=== PATIENT | female | born 1970 | race Caucasian/White ===

== ENCOUNTER 2018-11-08 15:15 | Emergency (ER) | payer OTHER ==
[~2018-11-08] VITALS: Ht 170.2 cm; Wt 136.1 kg
[2018-11-08 15:37] VITALS: BP_SYST 130
[2018-11-08] MEDS ORDERED: KETOROLAC TROMETHAMINE 60 MG/2 ML VIAL IM ONE (16:00)
[2018-11-08] MEDS ORDERED: ONDANSETRON 4 MG ODT TAB PO ONE (16:15)
[2018-11-08] MEDS ORDERED: MORPHINE SULFATE 10 MG/ML VIAL IM ONE ×2 (16:15→19:15)
[2018-11-08 22:10] VITALS: BP_SYST 130
== END 2018-11-08 22:10 | disposition home or self-care (01) ==
LOC: SED 15:15
DX: S33.5XXA Sprain of ligaments of lumbar spine, initial encounter (principal); S73.101A Unspecified sprain of right hip, initial encounter; S73.102A Unspecified sprain of left hip, initial encounter; S83.91XA Sprain of unspecified site of right knee, initial encounter; S83.92XA Sprain of unspecified site of left knee, initial encounter; S63.501A Unspecified sprain of right wrist, initial encounter; S63.502A Unspecified sprain of left wrist, initial encounter; R03.0 Elevated blood-pressure reading, without diagnosis of hypertension; Z88.5 Allergy status to narcotic agent; Z88.8 Allergy status to other drugs, medicaments and biological substances; W01.0XXA Fall on same level from slipping, tripping and stumbling without subsequent striking against object, initial encounter; Y93.89 Activity, other specified; Y92.89 Other specified places as the place of occurrence of the external cause; Y99.8 Other external cause status
CPT/HCPCS: 72131; 72192; 73100; 73700; 96372; 99284; J2270; Q0162; J1885

== ENCOUNTER 2021-12-17 05:24 | Observation (INO) | payer BC ==
[~2021-12-17] VITALS: Ht 170.2 cm; Wt 63.3 kg
[~2021-12-17 05:24] MED LIST: ALPR0.25 PO; APIX5TAB4 PO; DULO60CA42 PO; HYDR25TA4 PO; LAM25 PO; LEVO150T PO; METF-518 PO; NEU300 PO; QUET300T2 PO; SUCR1TAB78 PO; TRAZ300T2 PO; ZAN4 PO
[2021-12-17 05:27] VITALS: BP_SYST 133
--- NOTE | 2021-12-17 05:27 | NUR ---
Placed in room 5 . Placed on night monitor, blood pressure machine and pulse oximeter. To gown for exam. Side rails up.
--- NOTE | 2021-12-17 05:54 | NUR ---
Xray performed at the bedside.Pt tolerated well,
--- NOTE | 2021-12-17 06:09 | NUR ---
LYNN Graff at bedside examining patient.
[2021-12-17 06:17] LABS: BASOPHILS # (AUTO) 0.1 K/uL (0.0-0.2); BASOPHILS % (AUTO) 0.8 % (0.0-2.0); EOSINOPHILS # (AUTO) 0.2 K/uL (0.0-0.4); HEMOGLOBIN 10.4 g/dL (12.0-16.0); RED CELL DISTRIBUTION WIDTH 18.1 % (9.0-15.0)
[2021-12-17 06:24] LABS: EOSINOPHILS % (AUTO) 1.3 % (0.0-4.0); HEMATOCRIT 32.7 % (36-48); LYMPHOCYTES # (AUTO) 2.9 K/uL (1.0-5.5); LYMPHOCYTES % (AUTO) 22.3 % (20.5-51.5); MEAN CORPUSCULAR HEMOGLOBIN 22 pg (27-31); MEAN CORPUSCULAR HGB CONC 32 % (32-36); MEAN CORPUSCULAR VOLUME 69 fL (79.0-98.0); MONOCYTES # (AUTO) 0.7 K/uL (0.0-1.0); MONOCYTES % (AUTO) 5.2 % (1.7-9.3); NEUTROPHILS % (AUTO) 70.4 % (40.0-70.0); PLATELET COUNT (AUTO) 300 K/uL (130-430); RED BLOOD CELL COUNT(AUTO) 4.71 MIL/uL (4.2-6.2); WHITE BLOOD COUNT (AUTO) 12.8 K/uL (4.8-10.8)
[2021-12-17 06:27] LABS: ANION GAP 10 (5-15); CALCIUM 9.1 mg/dL (8.4-11.0); CHLORIDE 102 mmol/L (98-107); CREATININE 0.79 mg/dL (0.55-1.30); GLUCOSE 184 mg/dL (70-99); POTASSIUM 3.4 mmol/L (3.5-5.1); SODIUM SERUM 139 mmol/L (136-145); UREA NITROGEN, BLOOD 23 mg/dL (8-21)
[2021-12-17] MEDS ORDERED: ONDANSETRON HCL 4 MG/2 ML VIAL IVP ONE ×2 (06:30)
[2021-12-17] MEDS ORDERED: NACL 0.9% 1,000 ML IV ONE (06:30)
[2021-12-17] MEDS ORDERED: MAG HYDROX/AL HYDROX/SIMETH 30 ML, LIDOCAINE VISCOUS 2% 15ML (PO) 15 ML, DICYCLOMINE HC... PO ONE ×3 (06:30)
[2021-12-17] MEDS ORDERED: KETOROLAC TROMETHAMINE 30 MG VIAL IM ONE (06:30)
[2021-12-17 06:36] LABS: GFR AFRICAN AMERICAN 99 mL/min (>90)
[2021-12-17 06:38] LABS: ALANINE AMINOTRANSFERASE 29 U/L (12-78); ALBUMIN 3.1 g/dL (3.4-4.8); ASPARTATE AMINOTRANSFERASE 22 U/L (10-37); TOTAL BILIRUBIN 0.3 mg/dL (0.0-1.0)
[2021-12-17] MEDS ORDERED: KETOROLAC TROMETHAMINE 30 MG VIAL IVP ONE (06:45)
--- NOTE | 2021-12-17 07:10 | NUR ---
Report given to Mauro CROOK(reg)
[2021-12-17] MEDS ORDERED: MORPHINE 4 MG INJ. 4 MG/ML VIAL IVP ONE ×2 (07:30)
[2021-12-17] MEDS ORDERED: HYDROcodone/ACETAMIN 5-325 MG TAB (NORCO/ VICODIN) PO PRN (10:15)
--- NOTE | 2021-12-17 10:22 | NUR ---
Admit bed requested Patient will be admitted to care of Dr Leyva. Admitted to Medsurg unit. Diagnosis Chest pain Inpatient (Yes or No) No Observation (Yes or No) Yes Orientation concerns or request close to nursing station (Yes or No) No Covid Status Pending On vent or bipap Isolation requirements N/A Needs a sitter N/A From Home (Yes or if No enter name of facility) Yes Requires Dialysis (Yes or No) N/A Med Rec Completed (Yes of No)
--- NOTE | 2021-12-17 11:10 | NUR ---
AT BESIDE, PT ON HER CELLPHONE, APPEARS TO BE IN NO ACUTE DISTRESS NOTED ATH THIS TIME
--- NOTE | 2021-12-17 12:47 | NUR ---
Pt moved to the merchant alongside with . Pt c/o 02/10 pain to chest intermitantly. No signs of distress. Pt is sitting up speaking full sentences and requesting 3rd dose of Morphine. Pt states "allergy to Toradol, tylenol and Vicodin does not work". Notified ER doctor of pain stated.
--- NOTE | 2021-12-17 13:43 | NUR ---
Pt sitting up in bed eating a diabetic diet. at bedside. aaox4. no ss acute distress.
--- NOTE | 2021-12-17 14:16 | NUR ---
Per AMBREEN Wade, "I swabbed for COVID & sent to lab."
--- NOTE | 2021-12-17 17:09 | NUR ---
Pt complains of pain 03/12 offered 3rd time Pain medicine of Vicodin. Pt refuses and states that is not effective and demands Morphine. Unable to get a hold of admissions doctor
[2021-12-17] MEDS ORDERED: NALOXONE HCL 0.4 MG/ML AMP (NARCAN) IVP PRN (18:30)
--- NOTE | 2021-12-17 18:55 | NUR ---
Pt pain level 10/10 notified admiting doctor [facility]. Orders received. Medicated pt with Morphine 2 mg. Pt relaxed medication effective for addressing pain scale. Pt states 6/10 pain scale at this time. sitting up in bed on the phone, speaking full sentences. VSS, respiratory even and unlabored.
[2021-12-17] MEDS ORDERED: MORPHINE 2 MG/ML INJ. SYRINGE ONE (18:57)
[2021-12-17] MEDS: MORPHINE 2 MG/ML INJ. SYRINGE IVP PRN ×3 (19:02→23:43)
[2021-12-17 21:00] VITALS: BP_SYST 159
[2021-12-17] MEDS: AMITRIPTYLINE HCL 25 MG TABLET (ELAVIL) PO SCH (21:20)
[2021-12-17 23:00] VITALS: BP_SYST 159
[2021-12-18] VITALS (7 sets, daily range): BP systolic 143–158
[2021-12-18] MEDS: MORPHINE 2 MG/ML INJ. SYRINGE IVP PRN ×6 (02:01→21:45)
--- NOTE | 2021-12-18 06:33 | NUR ---
PATIENT WAS AWAKE ON AND OFF. WAS BEEN IN PAIN ON THE CHEST ON AND OFF. CONSTANTLY RECEIVES MORPHINE MORE OR LESS EVERY 2 HRS FOR HER PAIN. AAOX4. VS STABLE. NO DISTRESS NOTED. SL TO RIGHT WRIST STILL INTACT AND FLUSHING WELL. KEPT MONITORED FOR CONTINUING PAIN AND ASSESSED FREQUENTLY. KEPT WARM AND COMFORTABLE. ALL NEEDS ATTENDED. CALL LIGHT PLACED WITHIN REACH. MONITORED CLOSELY.
--- NOTE | 2021-12-18 08:00 | NUR ---
OPENING NOTES: Received patient in bed alert, oriented and verbally responsive. safety precaution observed. Will continue to monitor.
--- NOTE | 2021-12-18 09:21 | NUR ---
MORPHINE GIVEN FOR 10/10 CHEST PAIN, PRN GIVEN PER ORDER. PATIENT TOLERATED WELL. AOX4, ALL SAFETY PRECAUTIONS IN PLACE, BED LOW AND LOCKED FOR SAFETY. CALL LIGHT IN REACH. PATIENT EDUCATION ON MEDICATION GIVEN. PATIENT HAS VERBALIZED UNDERSTANDING.
[2021-12-18] MEDS: APIXABAN 2.5 MG TABLET PO SCH ×2 (09:51→21:49)
[2021-12-18] MEDS ORDERED: ALBUTEROL SULFATE 0.083% 2.5 MG/3 ML VIAL.NEB INH PRN (10:00)
[2021-12-18 10:55] LABS: PROTHROMBIN TIME 10.4 SECS (9.5-12.5)
--- NOTE | 2021-12-18 11:14 | NUR ---
PHYSICAL THERAPY EVALUATION COMPLETED. PATIENT IS SAFE TO USE THE FWW FOR SUPERVISED AMBULATION. SHE DOES NOT NEED FURTHER PHYSICAL THERAPY AT THIS TIME.
[2021-12-18] MEDS: DIPHENHYDRAMINE HCL 25 MG CAPSULE PO PRN ×2 (14:07→21:44)
--- NOTE | 2021-12-18 18:00 | NUR ---
CLOSING NOTES: Patient alert, oriented and verbally responsive. Patient MID Line insertion done during shift, all needs met throughout shift, BRP, moved to Room 128A , safety precaution observed, call light within reach, bed height set at lowest, 2 side rails up. Will endorse to night coordinator nurse.
--- NOTE | 2021-12-18 20:00 | NUR ---
RECEIVED PT FROM DAY SHIFT, PT AOX4,NO ACUTE DISTRESS OR DISCOMFORT NOTED, BREATHING EVEN AND UNLABORED, SATURATING WELL ROOM AIR, FALL AND SAFETY PRECAUTIONS IN PLACE WITH BED IN LOWEST POSITION, BED ALARM ON, AND CALL LIGHT WITHIN REACH, WILL CONTINUE TO MONITOR.
[2021-12-18] MEDS: AMITRIPTYLINE HCL 25 MG TABLET (ELAVIL) PO SCH (21:44)
[2021-12-19] VITALS: BP_SYST 144
--- NOTE | 2021-12-19 | NUR ---
NO CHANGES NOTED FROM PREVIOUS ASSESSMENT, WILL CONTINUE TO MONITOR.
[2021-12-19] MEDS: MORPHINE 2 MG/ML INJ. SYRINGE IVP PRN ×3 (02:06→11:14)
--- NOTE | 2021-12-19 06:00 | NUR ---
PT RESTING COMFORTABLY IN BED, NO S/S OF DISTRESS OR DISCOMFORT NOTED, BREATHING EVEN AND UNLABORED, ALL FALL PROTOCOLS IN PLACE, WILL CONTINUE TO MONITOR AND ENDORSED TO INCOMING AM NURSE.
[2021-12-19 06:32] LABS: BASOPHILS # (AUTO) 0.1 K/uL (0.0-0.2); BASOPHILS % (AUTO) 0.5 % (0.0-2.0); EOSINOPHILS # (AUTO) 0.2 K/uL (0.0-0.4); EOSINOPHILS % (AUTO) 1.5 % (0.0-4.0); HEMATOCRIT 31.9 % (36-48); LYMPHOCYTES # (AUTO) 2.9 K/uL (1.0-5.5); LYMPHOCYTES % (AUTO) 19.1 % (20.5-51.5); MEAN CORPUSCULAR HEMOGLOBIN 22 pg (27-31); MEAN CORPUSCULAR HGB CONC 31 % (32-36); MEAN CORPUSCULAR VOLUME 70 fL (79.0-98.0); MONOCYTES # (AUTO) 0.6 K/uL (0.0-1.0); MONOCYTES % (AUTO) 4.1 % (1.7-9.3); NEUTROPHILS # (AUTO) 11.4 K/uL (1.8-7.7); NEUTROPHILS % (AUTO) 74.8 % (40.0-70.0); PLATELET COUNT (AUTO) 327 K/uL (130-430); RED BLOOD CELL COUNT(AUTO) 4.53 MIL/uL (4.2-6.2); WHITE BLOOD COUNT (AUTO) 15.2 K/uL (4.8-10.8)
[2021-12-19 07:03] LABS: CALCIUM 8.9 mg/dL (8.4-11.0); CREATININE 0.74 mg/dL (0.55-1.30); POTASSIUM 3.4 mmol/L (3.5-5.1); TOTAL BILIRUBIN 0.3 mg/dL (0.0-1.0)
--- NOTE | 2021-12-19 07:26 | NUR ---
SHIFT CHANGE REPORT GIVEN TO AARON RAYAN, ALL QUESTIONS WERE ANSWERED AND DRAMATIC AGENT VERBALIZED UNDERSTANDING.
[2021-12-19 08:00] VITALS: BP_SYST 151
[2021-12-19] MEDS: APIXABAN 2.5 MG TABLET PO SCH (08:07)
[2021-12-19] MEDS: DIPHENHYDRAMINE HCL 25 MG CAPSULE PO PRN (08:13)
[2021-12-19] MEDS ORDERED: PANTOPRAZOLE SODIUM 40 MG TAB PO SCH (09:00)
[2021-12-19] MEDS ORDERED: POTASSIUM CHLORIDE 20 MEQ/PKT PACKET PO ONE (09:00)
[2021-12-19 09:49] VITALS: BP_SYST 151
--- NOTE | 2021-12-19 12:07 | NUR ---
D/C Patient Patient given medication reconciliation form and D/C instructions. Exit Care provided. Patient verbalized understanding. MD discussed with patient the results and treatment provided. Ambulatory with steady gait for discharge to home with family via private auto. Patient in stable condition, ID band removed. IV catheter removed, intact and dressing applied, no active bleeding. Patient educated on pain management. All belongings sent with patient.
[2021-12-20] MEDS ORDERED: NAPHAZOLINE HCL/PHENIRAMINE 15 ML OPHT. DROPS OP SCH (09:00)
== END 2021-12-19 12:07 | disposition home or self-care (01) ==
LOC: SED 05:24 → SMU 10:15
PROVIDERS: ADMIT Preventive Medicine Preventive Medicine/Occupational Environmental Medicine; ATTEND Preventive Medicine Preventive Medicine/Occupational Environmental Medicine
DX: R07.89 Other chest pain (principal); Z20.822 Contact with and (suspected) exposure to COVID-19; R41.9 Unspecified symptoms and signs involving cognitive functions and awareness; E66.01 Morbid (severe) obesity due to excess calories; G47.33 Obstructive sleep apnea (adult) (pediatric); E03.9 Hypothyroidism, unspecified; E11.9 Type 2 diabetes mellitus without complications; M79.7 Fibromyalgia; E78.5 Hyperlipidemia, unspecified; K21.9 Gastro-esophageal reflux disease without esophagitis; F41.9 Anxiety disorder, unspecified; Z86.711 Personal history of pulmonary embolism; Z87.891 Personal history of nicotine dependence; Z79.01 Long term (current) use of anticoagulants; Z79.899 Other long term (current) drug therapy
CPT/HCPCS: 96361; 96374; 96375; 96376 ×3; 80053 ×2; 82962; 85025 ×2; 84484; 36415 ×3; 93005; 71045; 99285; 87426; 85610; 85730; 97162; J2001; J1885; J2405; J2270 ×4; G0378 ×3; Q0163 ×2

== ENCOUNTER 2022-01-18 12:54 | Emergency (ER) | payer BC ==
[~2022-01-18] VITALS: Ht 170.2 cm; Wt 131.1 kg
[2022-01-18 13:00] VITALS: BP_SYST 136
[2022-01-18] MEDS ORDERED: MORPHINE 4 MG INJ. 4 MG/ML VIAL IM ONE (14:45)
[2022-01-18] MEDS ORDERED: ONDANSETRON 4 MG ODT TAB ONE (15:15)
[2022-01-18] MEDS ORDERED: ONDANSETRON 4 MG ODT TAB PO ONE (15:15)
[2022-01-18 15:23] LABS: BASOPHILS # (AUTO) 0.1 K/uL (0.0-0.2); EOSINOPHILS # (AUTO) 0.1 K/uL (0.0-0.4); EOSINOPHILS % (AUTO) 0.9 % (0.0-4.0); HEMATOCRIT 31.4 % (36-48); HEMOGLOBIN 9.7 g/dL (12.0-16.0); LYMPHOCYTES % (AUTO) 18.1 % (20.5-51.5); MEAN CORPUSCULAR HEMOGLOBIN 21 pg (27-31); MEAN CORPUSCULAR HGB CONC 31 % (32-36); MEAN CORPUSCULAR VOLUME 67 fL (79.0-98.0); MONOCYTES # (AUTO) 0.4 K/uL (0.0-1.0); NEUTROPHILS # (AUTO) 8.3 K/uL (1.8-7.7); PLATELET COUNT (AUTO) 310 K/uL (130-430); RED BLOOD CELL COUNT(AUTO) 4.68 MIL/uL (4.2-6.2); RED CELL DISTRIBUTION WIDTH 18.5 % (9.0-15.0)
[2022-01-18 15:34] LABS: ANION GAP 8 (5-15); CALCIUM 8.9 mg/dL (8.4-11.0); CHLORIDE 105 mmol/L (98-107); CREATININE 0.75 mg/dL (0.55-1.30); GLUCOSE 104 mg/dL (70-99); POTASSIUM 4.1 mmol/L (3.5-5.1); SODIUM SERUM 142 mmol/L (136-145); UREA NITROGEN, BLOOD 17 mg/dL (8-21)
[2022-01-18 15:48] LABS: ALANINE AMINOTRANSFERASE 27 U/L (12-78); ALBUMIN 3.5 g/dL (3.4-4.8); ASPARTATE AMINOTRANSFERASE 34 U/L (10-37); TOTAL BILIRUBIN 0.4 mg/dL (0.0-1.0)
[2022-01-18 16:11] LABS: GFR AFRICAN AMERICAN 105 mL/min (>90)
[2022-01-18] MEDS ORDERED: OXYIR5 PO (16:37)
[2022-01-18] MEDS ORDERED: IBUP-1969 PO (16:37)
[2022-01-18 20:30] LABS: ACETONE, SERUM NEGATIVE (NEGATIVE)
== END 2022-01-18 16:54 | disposition home or self-care (01) ==
LOC: SED 12:54
DX: R55 Syncope and collapse (principal); R51.9 Headache, unspecified; M25.522 Pain in left elbow; M54.50 Low back pain, unspecified; R42 Dizziness and giddiness; E11.9 Type 2 diabetes mellitus without complications; Z88.5 Allergy status to narcotic agent; Z88.6 Allergy status to analgesic agent; Z88.8 Allergy status to other drugs, medicaments and biological substances; Z91.048 Other nonmedicinal substance allergy status; Z79.899 Other long term (current) drug therapy
CPT/HCPCS: 99283; 80053; 82009; 82550; 85025; 36415; 96372; 83605; Q0162; J2270

== ENCOUNTER 2022-01-25 14:43 | Emergency (ER) | payer BC ==
[~2022-01-25] VITALS: Ht 170.2 cm; Wt 128.8 kg
[~2022-01-25 14:43] MED LIST changes: +IBUP-1969 PO; +OXYIR5 PO
[2022-01-25 15:05] VITALS: BP_SYST 172
--- NOTE | 2022-01-25 15:10 | NUR ---
Patient triaged and placed in waiting room. VSS and patient appears in no acute distress at this time. Accompanied by SPOUSE, awaiting available bed, and MD notified of need for MSE.
--- NOTE | 2022-01-25 15:15 | NUR ---
PT STATES PAIN TO LEFT GREAT TOE PAIN AND NOW WITH PAIN GOING UP LEFT FOOT. SEEN AND EVALUATED IN TRIAGE ROOM BY DR BENAVIDES. REQUESTING IM PAIN MEDS
--- NOTE | 2022-01-25 15:40 | NUR ---
TAKEN TO RADIOLOGY VIA WHEELCHAIR Addendum: 01/25/22 at 1603 by KEITHEDLLMaru TO LAB
--- NOTE | 2022-01-25 15:48 | NUR ---
RETURNED TO WAITING ROOM, AWAITING AVAILABLE ER BED
[2022-01-25 16:46] LABS: CALCIUM 9.4 mg/dL (8.4-11.0); CREATININE 0.82 mg/dL (0.55-1.30); POTASSIUM 3.9 mmol/L (3.5-5.1)
[2022-01-25 16:53] LABS: ALBUMIN 3.6 g/dL (3.4-4.8); TOTAL BILIRUBIN 0.3 mg/dL (0.0-1.0)
--- NOTE | 2022-01-25 17:31 | NUR ---
TAKEN TO ULTRASOUND FOR TESTING
--- NOTE | 2022-01-25 18:15 | NUR ---
PT RE-EVALUATED BY DR BENAVIDES AND GIVEN ALL TEST RESULTS. PT ASKING FOR AN INJECTION OF MORPHINE. NO AVAILABLE BEDS IN ER AT THIS TIME, PT STATES SHE WILL WAIT FOR A BED. OFFERED MANY PO MEDS, PT REFUSED ONLY WANTING MORPHINE
[2022-01-25] MEDS ORDERED: MORPHINE 4 MG INJ. 4 MG/ML VIAL IM ONE (19:45)
[2022-01-25] MEDS ORDERED: ONDANSETRON 4 MG ODT TAB PO ONE (19:45)
[2022-01-25 20:09] VITALS: BP_SYST 172
--- NOTE | 2022-01-25 20:10 | NUR ---
Patient given written and verbal discharge instructions and verbalizes understanding. ER MD discussed with patient the results and treatment provided. Patient in stable condition. ID arm band removed. No Rx given. Patient educated on pain management and to follow up with PMD. Pain Scale 2/10. Opportunity for questions provided and answered. Medication side effect fact sheet provided.
== END 2022-01-25 20:09 | disposition home or self-care (01) ==
LOC: SED 14:43
DX: E11.40 Type 2 diabetes mellitus with diabetic neuropathy, unspecified (principal); G43.909 Migraine, unspecified, not intractable, without status migrainosus; R20.2 Paresthesia of skin; I10 Essential (primary) hypertension; Z88.5 Allergy status to narcotic agent; Z88.6 Allergy status to analgesic agent; Z88.8 Allergy status to other drugs, medicaments and biological substances; Z91.048 Other nonmedicinal substance allergy status; Z79.899 Other long term (current) drug therapy
CPT/HCPCS: 99284; 93971; 80053; 36415; 96372; Q0162; J2270

== ENCOUNTER 2022-02-19 02:51 | Emergency (ER) | payer BC ==
[~2022-02-19] VITALS: Ht 170.2 cm; Wt 131.1 kg
[~2022-02-19 02:51] MED LIST changes: +SUCR1TAB2 PO; -SUCR1TAB78 PO
[2022-02-19 03:08] VITALS: BP_SYST 128
--- NOTE | 2022-02-19 03:10 | NUR ---
patient brought in accompanied by significant other in wheelchair complaining of lower back pain radiating down left leg x 3 weeks now having numbness and tingling to foot and ankle. Patient diagnosed with diabetic neuropathy on 01/25/22 and instructed to follow up with PMD. Patient reports seening PMD on 02/12/22 and prescribed morphine xr tablets and ran out on Saturday. Complains of extreme pain " 50 out of 10" that makes her "anxious and nauseated". Patient is requesting a C Spine MRI. Patient reports has one scheduled but "does not want to wait because it's too long." Patient also complains of dehydration and generalized weakness. Patient is requesting to be admitted to the hospital because she "does not want to deal with having to make appointments and follow up." VSS. Patient speaking full sentances. No acute diestress noted at this time Hx of DM, thyroid CA, DVT, Fibromyalgia and Rheumatoid arthritis. Allergies to Compazine, proventil, sulfa, norco and toradol.
--- NOTE | 2022-02-19 03:12 | NUR ---
DR. ARTEAGA ASSESSING PATIENT IN TRIAGE AT THIS TIME.
--- NOTE | 2022-02-19 03:49 | NUR ---
DR. ARTEAGA SPEAKING TO AND ASSESSING PATIENT IN TRIAGE AREA.
[2022-02-19] MEDS ORDERED: ONDANSETRON HCL 4 MG/2 ML VIAL IVP ONE (04:15)
[2022-02-19] MEDS ORDERED: NACL 0.9% 1,000 ML IV ONE (04:15)
[2022-02-19] MEDS ORDERED: MORPHINE 4 MG INJ. 4 MG/ML VIAL IVP ONE ×3 (04:15→05:30)
--- NOTE | 2022-02-19 05:53 | NUR ---
RECEIVED FROM TRIAGE WITH COMPLAIN OF LOWER BACK PAIN , MEDICATED ORDERED , PATIENT VERBALISED RELIEF OF PAIN AT THIS TIME, WILL CONTINUE TO MONITOR
[2022-02-19] MEDS ORDERED: MORPHINE 4 MG INJ. 4 MG/ML VIAL ONE (07:51)
[2022-02-19] MEDS ORDERED: MORPHINE SULFATE 10 MG/ML VIAL IM ONE (08:45)
--- NOTE | 2022-02-19 09:00 | NUR ---
LYNN Graff at bedside examining patient.
--- NOTE | 2022-02-19 09:48 | NUR ---
Patient given written and verbal discharge instructions and verbalizes understanding. ER MD discussed with patient the results and treatment provided. Patient in stable condition. ID arm band removed. Patient educated on osteoarthritis and to follow up with PMD. Opportunity for questions provided and answered. Medication side effect fact sheet provided.
[2022-02-19 09:50] VITALS: BP_SYST 108
[2022-02-21] MEDS ORDERED: MORP30TA PO (13:43)
[2022-02-21] MEDS ORDERED: METO-290 PO (13:43)
[2022-02-21] MEDS ORDERED: MORP30CA13 PO (14:45)
[2022-02-21] MEDS ORDERED: METF-379 PO (14:45)
== END 2022-02-19 09:50 | disposition home or self-care (01) ==
LOC: SED 02:51
DX: M54.50 Low back pain, unspecified (principal); E11.9 Type 2 diabetes mellitus without complications; I10 Essential (primary) hypertension; Z88.5 Allergy status to narcotic agent; Z88.6 Allergy status to analgesic agent; Z88.8 Allergy status to other drugs, medicaments and biological substances; Z91.048 Other nonmedicinal substance allergy status; Z79.899 Other long term (current) drug therapy
CPT/HCPCS: 99285; 72128; 96374; 96361; 96375; 72131; 76376; 96376; 96372; J2405; J2270 ×2; J7030

== ENCOUNTER 2022-05-17 02:07 | Emergency (ER) | payer BC ==
[~2022-05-17] VITALS: Ht 170.2 cm; Wt 135.2 kg
[~2022-05-17 02:07] MED LIST changes: +METF-379 PO; -METF-518 PO; +METO-290 PO; +MORP30CA13 PO; -OXYIR5 PO; -SUCR1TAB2 PO; -TRAZ300T2 PO; -ZAN4 PO
[2022-05-17 02:27] VITALS: BP_SYST 133
[2022-05-17 04:26] LABS: BASOPHILS # (AUTO) 0.1 K/uL (0.0-0.2); BASOPHILS % (AUTO) 0.6 % (0.0-2.0); EOSINOPHILS # (AUTO) 0.1 K/uL (0.0-0.4); EOSINOPHILS % (AUTO) 1.2 % (0.0-4.0); HEMOGLOBIN 9.4 g/dL (12.0-16.0); LYMPHOCYTES # (AUTO) 2.3 K/uL (1.0-5.5); LYMPHOCYTES % (AUTO) 18.9 % (20.5-51.5); MEAN CORPUSCULAR HEMOGLOBIN 20 pg (27-31); MEAN CORPUSCULAR HGB CONC 30 % (32-36); MEAN CORPUSCULAR VOLUME 67 fL (79.0-98.0); MONOCYTES # (AUTO) 0.6 K/uL (0.0-1.0); NEUTROPHILS # (AUTO) 8.9 K/uL (1.8-7.7); NEUTROPHILS % (AUTO) 74.3 % (40.0-70.0); PLATELET COUNT (AUTO) 305 K/uL (130-430); RED BLOOD CELL COUNT(AUTO) 4.66 MIL/uL (4.2-6.2); RED CELL DISTRIBUTION WIDTH 18.9 % (9.0-15.0)
[2022-05-17] MEDS ORDERED: NACL 0.9% 1,000 ML IV ONE (04:30)
[2022-05-17] MEDS ORDERED: ONDANSETRON HCL 4 MG/2 ML VIAL IVP ONE (04:30)
[2022-05-17] MEDS ORDERED: PANTOPRAZOLE SODIUM 40 MG/VIAL (PROTONIX) IVP ONE (04:30)
[2022-05-17] MEDS ORDERED: LORazepam 2 MG/ML VIAL IVP ONE ×2 (04:30→11:30)
[2022-05-17] MEDS ORDERED: BENZTROPINE MESYLATE 2 MG/ 2 ML AMP IVP ONE (04:30)
[2022-05-17] MEDS ORDERED: MAG HYDROX/AL HYDROX/SIMETH 30 ML, LIDOCAINE VISCOUS 2% 15ML (PO) 15 ML, DICYCLOMINE HC... PO ONE ×3 (04:30)
[2022-05-17] MEDS ORDERED: PROCHLORPERAZINE EDISYLATE 10 MG/2 ML VIAL IVP ONE (04:30)
[2022-05-17 04:54] LABS: BILIRUBIN,URINE NEGATIVE (NEGATIVE); BLOOD, URINE NEGATIVE (NEGATIVE); COLOR,URINE YELLOW (YELLOW); GLUCOSE,URINE NEGATIVE (NEGATIVE); KETONES,URINE NEGATIVE (NEGATIVE); LEUKOCYTE ESTERASE ,URINE 1+ (NEGATIVE); NITRITE, URINE NEGATIVE (NEGATIVE); PH,URINE 7.5 (5.0-8.0); PROTEIN URINE NEGATIVE (NEGATIVE); UROBILINOGEN,URINE 0.2 (0.2-1.0)
[2022-05-17 05:05] LABS: CLARITY/URINE HAZY (CLEAR)
[2022-05-17 05:11] LABS: BACTERIA,URINE FEW /HPF (None Seen); RBC,URINE 0-3 /HPF (0-3); WBC,URINE 0-3 /HPF (0-3)
[2022-05-17 05:12] LABS: MUCUS,URINE 1+ /LPF (None Seen)
[2022-05-17 05:28] LABS: CALCIUM 9.2 mg/dL (8.4-11.0); CREATININE 0.71 mg/dL (0.55-1.30); TOTAL BILIRUBIN 0.4 mg/dL (0.0-1.0)
[2022-05-17 05:29] LABS: ALBUMIN 3.4 g/dL (3.4-4.8)
[2022-05-17] MEDS ORDERED: MORPHINE 2 MG/ML INJ. SYRINGE IVP ONE ×2 (06:00→11:30)
[2022-05-17] MEDS ORDERED: POTASSIUM CHLORIDE 20 MEQ/PKT PACKET PO ONE (11:30)
[2022-05-17] MEDS ORDERED: OMEP40CA20 PO (12:28)
[2022-05-17] MEDS ORDERED: SUCR1TAB2 PO (12:28)
[2022-05-17] MEDS ORDERED: ACET-2634 PO (12:28)
[2022-05-17] MEDS ORDERED: CEPH250C PO (12:29)
[2022-05-17 12:51] VITALS: BP_SYST 132
== END 2022-05-17 12:52 | disposition home or self-care (01) ==
LOC: SED 02:07
DX: R10.13 Epigastric pain (principal); Z88.5 Allergy status to narcotic agent; Z88.8 Allergy status to other drugs, medicaments and biological substances; Z79.899 Other long term (current) drug therapy
CPT/HCPCS: 99284; 74176; 96374; 96375; 96361; 80053; 81000; 83690; 85025; 36415; 76376; 96376; J2001; J2060; J2405; C9113; J2270; J7030

== ENCOUNTER 2022-05-19 01:58 | Emergency (ER) | payer BC ==
[~2022-05-19] VITALS: Ht 170.2 cm; Wt 135.2 kg
[~2022-05-19 01:58] MED LIST changes: +ACET-2634 PO; +CEPH250C PO; +OMEP40CA20 PO; +SUCR1TAB2 PO
[2022-05-19 02:35] VITALS: BP_SYST 125
--- NOTE | 2022-05-19 02:50 | NUR ---
Patient presents to ED from home with c/o abd pain, dizziness, diarrhea, and anxiety. Patient reports pain 8/10 at this time. Patient reports she was here x2days ago for same issue; worsening today. Patient A/Ox4, VSS, in wheelchair, resp even and unlabored. Patient accompanied by daughter. Patient appears in no acute distress at this time. ER MD Wells made aware.
[2022-05-19] MEDS ORDERED: PANTOPRAZOLE SODIUM 40 MG/VIAL (PROTONIX) IVP ONE (03:15)
[2022-05-19] MEDS ORDERED: LORazepam 2 MG/ML VIAL IVP ONE (03:15)
[2022-05-19] MEDS ORDERED: MORPHINE 4 MG INJ. 4 MG/ML VIAL IVP ONE ×2 (03:15→06:30)
[2022-05-19] MEDS ORDERED: NACL 0.9% 1,000 ML IV ONE (03:15)
--- NOTE | 2022-05-19 03:30 | NUR ---
Patient to ER bed 6 to gown for evaluation. Side rails up. Report given to Sage CROOK(reg).
[2022-05-19 03:39] LABS: BASOPHILS % (AUTO) 0.3 % (0.0-2.0); EOSINOPHILS # (AUTO) 0.1 K/uL (0.0-0.4); EOSINOPHILS % (AUTO) 1.7 % (0.0-4.0); HEMATOCRIT 30.4 % (36-48); HEMOGLOBIN 9.3 g/dL (12.0-16.0); LYMPHOCYTES % (AUTO) 25.3 % (20.5-51.5); MEAN CORPUSCULAR HEMOGLOBIN 20 pg (27-31); MEAN CORPUSCULAR HGB CONC 30 % (32-36); MEAN CORPUSCULAR VOLUME 67 fL (79.0-98.0); MONOCYTES # (AUTO) 0.4 K/uL (0.0-1.0); MONOCYTES % (AUTO) 4.8 % (1.7-9.3); NEUTROPHILS # (AUTO) 5.4 K/uL (1.8-7.7); NEUTROPHILS % (AUTO) 67.9 % (40.0-70.0); PLATELET COUNT (AUTO) 274 K/uL (130-430); RED BLOOD CELL COUNT(AUTO) 4.54 MIL/uL (4.2-6.2); RED CELL DISTRIBUTION WIDTH 18.9 % (9.0-15.0)
[2022-05-19 03:45] LABS: CALCIUM 8.1 mg/dL (8.4-11.0); CREATININE 0.9 mg/dL (0.55-1.30)
[2022-05-19 03:50] LABS: ALBUMIN 3.4 g/dL (3.4-4.8); TOTAL BILIRUBIN 0.3 mg/dL (0.0-1.0)
--- NOTE | 2022-05-19 04:00 | NUR ---
PT IS AWAKE AND ALERT.OMPLAIN ABOUT THE PAIN.IN ABD, DAUGHTER AT BEDSIDE.
[2022-05-19] MEDS ORDERED: METOCLOPRAMIDE HCL 10 MG/2 ML VIAL IVP ONE (04:30)
[2022-05-19] MEDS ORDERED: HYOS-16 SL (06:12)
[2022-05-19] MEDS ORDERED: LOPE2CAP PO (06:12)
[2022-05-19] MEDS ORDERED: PROCHLORPERAZINE EDISYLATE 10 MG/2 ML VIAL IVP ONE (06:30)
--- NOTE | 2022-05-19 08:03 | NUR ---
Patient given written and verbal discharge instructions and verbalizes understanding. ER MD discussed with patient the results and treatment provided. Patient in stable condition. ID arm band removed. Rx of lEVSIN AND IMODIUM given. Patient educated on GASTRITIS management and to follow up with PMD. Opportunity for questions provided and answered. Medication side effect fact sheet provided.
[2022-05-19 08:07] VITALS: BP_SYST 112
== END 2022-05-19 08:03 | disposition home or self-care (01) ==
LOC: SED 01:58
DX: K59.00 Constipation, unspecified (principal); K29.70 Gastritis, unspecified, without bleeding; Z88.5 Allergy status to narcotic agent; Z88.6 Allergy status to analgesic agent; Z88.8 Allergy status to other drugs, medicaments and biological substances; Z91.048 Other nonmedicinal substance allergy status; Z79.899 Other long term (current) drug therapy
CPT/HCPCS: 99284; 96374; 96375; 96361; 80053; 83690; 85025; 36415; 74021; 96376; J2060; J2765; C9113; J0780; J2270; J7030

== ENCOUNTER 2022-05-30 09:46 | Emergency (ER) | payer BC ==
[~2022-05-30] VITALS: Ht 170.2 cm; Wt 133.8 kg
[~2022-05-30 09:46] MED LIST changes: +HYOS-16 SL; +LOPE2CAP PO
[2022-05-30 09:50] VITALS: BP_SYST 124
--- NOTE | 2022-05-30 09:50 | NUR ---
Patient triaged and placed in waiting room. VSS and patient appears in no acute distress at this time. Accompanied by SPOUSE, awaiting available bed, and MD notified of need for MSE.
[2022-05-30 10:46] LABS: BASOPHILS # (AUTO) 0.1 K/uL (0.0-0.2); BASOPHILS % (AUTO) 0.7 % (0.0-2.0); EOSINOPHILS # (AUTO) 0.1 K/uL (0.0-0.4); HEMATOCRIT 32.6 % (36-48); HEMOGLOBIN 9.9 g/dL (12.0-16.0); LYMPHOCYTES # (AUTO) 1.9 K/uL (1.0-5.5); LYMPHOCYTES % (AUTO) 17.9 % (20.5-51.5); MEAN CORPUSCULAR HEMOGLOBIN 20 pg (27-31); MEAN CORPUSCULAR HGB CONC 31 % (32-36); MEAN CORPUSCULAR VOLUME 66 fL (79.0-98.0); MONOCYTES # (AUTO) 0.5 K/uL (0.0-1.0); MONOCYTES % (AUTO) 4.5 % (1.7-9.3); NEUTROPHILS # (AUTO) 8.2 K/uL (1.8-7.7); NEUTROPHILS % (AUTO) 75.9 % (40.0-70.0); PLATELET COUNT (AUTO) 336 K/uL (130-430); RED BLOOD CELL COUNT(AUTO) 4.93 MIL/uL (4.2-6.2); RED CELL DISTRIBUTION WIDTH 19.4 % (9.0-15.0); WHITE BLOOD COUNT (AUTO) 10.8 K/uL (4.8-10.8)
--- NOTE | 2022-05-30 10:46 | NUR ---
DR RICE OUT TO TRIAGE ROOM TO EVALUATE PT.
[2022-05-30] MEDS ORDERED: ONDANSETRON 4 MG ODT TAB PO ONE ×2 (11:00→13:00)
[2022-05-30 11:17] LABS: CALCIUM 8.9 mg/dL (8.4-11.0); CREATININE 0.84 mg/dL (0.55-1.30)
[2022-05-30 11:33] LABS: ALBUMIN 3.6 g/dL (3.4-4.8); C-REACTIVE PROTEIN QUANT 3.4 mg/dL (0-0.5); TOTAL BILIRUBIN 0.4 mg/dL (0.0-1.0)
[2022-05-30 11:36] LABS: BILIRUBIN,URINE NEGATIVE (NEGATIVE); BLOOD, URINE NEGATIVE (NEGATIVE); CLARITY/URINE CLEAR (CLEAR); COLOR,URINE YELLOW (YELLOW); GLUCOSE,URINE NEGATIVE (NEGATIVE); KETONES,URINE NEGATIVE (NEGATIVE); LEUKOCYTE ESTERASE ,URINE 1+ (NEGATIVE); NITRITE, URINE NEGATIVE (NEGATIVE); PROTEIN URINE NEGATIVE (NEGATIVE); UROBILINOGEN,URINE 0.2 (0.2-1.0)
[2022-05-30 11:43] LABS: BACTERIA,URINE FEW /HPF (None Seen); MUCUS,URINE 1+ /LPF (None Seen)
--- NOTE | 2022-05-30 12:00 | NUR ---
Patient is a brought in by family chief complaint of left flank pain that started last night associated with several bouts of nausea and vomiting no diarrhea patient is requesting pain medications over and over patient denies fever or chills.
[2022-05-30] MEDS ORDERED: MORPHINE 4 MG INJ. 4 MG/ML VIAL IM ONE (13:00)
--- NOTE | 2022-05-30 13:05 | NUR ---
PT medicated per MD Muller order. Pt states "how long do I have to wait?" Monitoring patient for adverse reactions. VSS. BP 112/78 Heart rate 88.
[2022-05-30 13:14] VITALS: BP_SYST 124
--- NOTE | 2022-05-30 13:14 | NUR ---
VSS Pt requests discharge paper work. Notified
--- NOTE | 2022-05-30 13:36 | NUR ---
Patient given written and verbal discharge instructions and verbalizes understanding. ER MD discussed with patient the results and treatment provided. Patient in stable condition. ID arm band removed. Patient educated on pain management and to follow up with PMD. Opportunity for questions provided and answered. Medication side effect fact sheet provided.
== END 2022-05-30 13:36 | disposition home or self-care (01) ==
LOC: SED 09:46
DX: R10.9 Unspecified abdominal pain (principal); R11.2 Nausea with vomiting, unspecified; Z88.5 Allergy status to narcotic agent; Z88.6 Allergy status to analgesic agent; Z88.8 Allergy status to other drugs, medicaments and biological substances; Z91.048 Other nonmedicinal substance allergy status; Z79.899 Other long term (current) drug therapy
CPT/HCPCS: 99284; 74176; 80053; 81000; 82150; 84703; 83690; 85025; 86140; 87086; 36415; 76376; 81025; 96372; 83605; Q0162; J2270

== ENCOUNTER 2022-07-18 00:21 | Emergency (ER) | payer BC ==
[~2022-07-18] VITALS: Ht 167.6 cm; Wt 68.0 kg
[2022-07-18 00:36] VITALS: BP_SYST 146
--- NOTE | 2022-07-18 00:36 | NUR ---
Patient to ER bed 02 to gown for evaluation. Side rails up. Report given to AMBREEN MURRY.
--- NOTE | 2022-07-18 00:40 | NUR ---
PATIENT BROUGHT IN WITH COMPLAINING OF PANIC ATTACK SINCE 2099 YESTERDAY. PATIENT REPORTS THAT SHE TOOK 2.5 MG XANAX AT 2100 WITH NO RELIEF. THEN CHANGED HER DOSAGE WHEN VERIFIED TO 0.5 MG OF XANAX. PATIENT IS RESTLESS. CHRONIC HIP PAIN OF 10/10.
--- NOTE | 2022-07-18 00:42 | NUR ---
ER at bedside examining patient.
[2022-07-18] MEDS ORDERED: MORPHINE SULFATE 10 MG/ML VIAL IVP ONE (00:45)
[2022-07-18] MEDS ORDERED: LORazepam 1 MG TABLET PO ONE (00:45)
--- NOTE | 2022-07-18 00:54 | NUR ---
# 20 gauge angiocath placed to RAC. Use of asceptic technique. Opsite placed over site. Blood return noted. Flushed with 10 cc of normal saline. No evidence of infiltration noted. Patient tolerated well.
--- NOTE | 2022-07-18 01:06 | NUR ---
PATIENT RESTING CALMLY IN BED. PATIENT NO LONGER MAKING GRUNTING NOISES OR FLAILING ARMS. MD NOTIFIED.
[2022-07-18 01:24] VITALS: BP_SYST 128
--- NOTE | 2022-07-18 01:24 | NUR ---
Patient given written and verbal discharge instructions and verbalizes understanding. ER MD discussed with patient the results and treatment provided. Patient in stable condition. ID arm band removed. IV catheter removed intact and dressing applied, no active bleeding. NO RX GIVEN. Patient educated on pain management and to follow up with PAIN MANAGEMENT FOR CHRONIC PAIN. Pain Scale 0/10 Opportunity for questions provided and answered.
== END 2022-07-18 01:24 | disposition home or self-care (01) ==
LOC: SED 00:21
DX: F41.9 Anxiety disorder, unspecified (principal); M54.50 Low back pain, unspecified; G89.29 Other chronic pain; Z88.5 Allergy status to narcotic agent; Z88.6 Allergy status to analgesic agent; Z88.8 Allergy status to other drugs, medicaments and biological substances; Z91.048 Other nonmedicinal substance allergy status; Z79.899 Other long term (current) drug therapy
CPT/HCPCS: 99283; 96374; J2270

== ENCOUNTER 2022-07-18 21:53 | Emergency (ER) | payer BC ==
[~2022-07-18] VITALS: Ht 170.2 cm; Wt 99.8 kg
[2022-07-18 22:27] VITALS: BP_SYST 128
[2022-07-18] MEDS ORDERED: MORPHINE 4 MG INJ. 4 MG/ML VIAL IM ONE (23:45)
[2022-07-18] MEDS ORDERED: LORazepam 1 MG TABLET PO ONE (23:45)
[2022-07-19 00:03] VITALS: BP_SYST 127
== END 2022-07-19 00:03 | disposition home or self-care (01) ==
LOC: SED 21:53
DX: F41.9 Anxiety disorder, unspecified (principal); Z88.5 Allergy status to narcotic agent; Z88.6 Allergy status to analgesic agent; Z88.8 Allergy status to other drugs, medicaments and biological substances; Z91.048 Other nonmedicinal substance allergy status; Z79.899 Other long term (current) drug therapy
CPT/HCPCS: 99283; 81025; 96372; J2270

== ENCOUNTER 2022-09-29 00:37 | Emergency (ER) | payer BC ==
[~2022-09-29] VITALS: Ht 170.2 cm; Wt 127.0 kg
--- NOTE | 2022-09-29 01:24 | NUR ---
Patient to ER bed 05 to gown for evaluation. Side rails up. Report given to AMBREEN GANT .
--- NOTE | 2022-09-29 01:30 | NUR ---
PT BIB FROM HOME, ASSISTED TO BED 5 VIA WHEELCHAIR. PT A&Ox4, ABLE TO MAKE NEEDS KNOWN. PT IS GROGGY AND HAS TO BE WOKEN UP WHILE BEING SPOKEN TO. PT C/O RIGHT SHOULDER PAIN DUE TO A FALL TWO WEEKS AGO. PT RATES PAIN 9/10 AND DESCRIBES PAIN SHARP. PT TOOK TWO 500MG OF TYLENOL AT 2030 ON 09/28/2022. PT STATES SHE TOOK XANAX IN THE MORNING ON 09/28/2022. PT DENIES SOB AND CHEST PAIN. PT DENIES N/V/D. PT HAS HISTORY OF FIBROMYALGIA. SAFETY PREAUTIONS IN PLACE.
--- NOTE | 2022-09-29 01:40 | NUR ---
ER Dr. LEWIS at bedside examining patient.
[2022-09-29] MEDS ORDERED: NACL 0.9% 1,000 ML IV ONE ×2 (02:30→05:00)
[2022-09-29 02:47] LABS: ALANINE AMINOTRANSFERASE 28 U/L (12-78); ALBUMIN 0.8 g/dL (3.4-4.8); ALCOHOL, BLOOD < 3 mg/dL (<10); ANION GAP 16 (5-15); ASPARTATE AMINOTRANSFERASE 26 U/L (10-37); CALCIUM 9.7 mg/dL (8.4-11.0); CHLORIDE 97 mmol/L (98-107); CREATININE 0.97 mg/dL (0.55-1.30); GFR AFRICAN AMERICAN 78 mL/min (>90); GLUCOSE 115 mg/dL (70-99); TOTAL BILIRUBIN 0.5 mg/dL (0.0-1.0); UREA NITROGEN, BLOOD 15 mg/dL (8-21)
[2022-09-29 03:02] LABS: BASOPHILS % (AUTO) 0.3 % (0.0-2.0); EOSINOPHILS # (AUTO) 0.6 K/uL (0.0-0.4); EOSINOPHILS % (AUTO) 3.3 % (0.0-4.0); HEMATOCRIT 37.8 % (36-48); HEMOGLOBIN 11.4 g/dL (12.0-16.0); LYMPHOCYTES # (AUTO) 3.5 K/uL (1.0-5.5); LYMPHOCYTES % (AUTO) 20.1 % (20.5-51.5); MEAN CORPUSCULAR HEMOGLOBIN 20 pg (27-31); MEAN CORPUSCULAR HGB CONC 30 % (32-36); MEAN CORPUSCULAR VOLUME 66 fL (79.0-98.0); MONOCYTES % (AUTO) 5.7 % (1.7-9.3); NEUTROPHILS # (AUTO) 12.3 K/uL (1.8-7.7); NEUTROPHILS % (AUTO) 70.6 % (40.0-70.0); PLATELET COUNT (AUTO) 395 K/uL (130-430); RED BLOOD CELL COUNT(AUTO) 5.74 MIL/uL (4.2-6.2); RED CELL DISTRIBUTION WIDTH 19.2 % (9.0-15.0); WHITE BLOOD COUNT (AUTO) 17.4 K/uL (4.8-10.8)
--- NOTE | 2022-09-29 07:19 | NUR ---
PT RESTING WITH EYES CLOSED, NO S/S OF DISCOMFORT NOTED. ENDORSED PT AND CARE TO ONCOMING NURSE AMBREEN CLEMENS.
--- NOTE | 2022-09-29 07:44 | NUR ---
X TACTILE STIMULI. PT STATES SHE TAKE NEURONTIN, AND XANAX. LATER ADMITS TO MORPHINE ALSO FOR FIBROMYALGIA, RX'D BY "MY PAIN DOCTOR". PT NOTED TO BE APATHETIC TOWARD HER CARE. REQUESTS ANALGESIA FOR RT ARM PAIN S/P FALL 1 WEEK AGO (TX'D BY PMD). REQUEST DENIED AT THIS TIME. INFORMED PT OF RATIONALE GIVEN SEDATED STATE W/ DIFFICULTY AROUSING. INFORMED PT OF CUMMULATIVE AFFECTS OF MEDS IN GENERAL. COMFORT MEASURES AND SUPPORTIVE CARE CONTINUED. AWAIT DIAGNOSTIC RESULTS AND DISPOSITION. Addendum: 09/29/22 at 0746 by [id number] REPORT RECIEVED FROM VELASQUEZ CROOK. PT SOMULENT, AROUSABLE W/ TACTILE STIMULI
[2022-09-29 08:29] LABS: BILIRUBIN,URINE NEGATIVE (NEGATIVE); BLOOD, URINE NEGATIVE (NEGATIVE); COLOR,URINE YELLOW (YELLOW); GLUCOSE,URINE NEGATIVE (NEGATIVE); KETONES,URINE NEGATIVE (NEGATIVE); LEUKOCYTE ESTERASE ,URINE NEGATIVE (NEGATIVE); NITRITE, URINE NEGATIVE (NEGATIVE); PROTEIN URINE 1+ (NEGATIVE); UROBILINOGEN,URINE 0.2 (0.2-1.0)
[2022-09-29 08:38] LABS: CLARITY/URINE SLIGHTLY HAZY (CLEAR)
[2022-09-29 08:42] LABS: BACTERIA,URINE FEW /HPF (None Seen); RBC,URINE 0-3 /HPF (0-3); WBC,URINE 0-3 /HPF (0-3)
[2022-09-29 08:43] LABS: MUCUS,URINE 1+ /LPF (None Seen)
[2022-09-29 09:05] LABS: BARBITURATE, URINE NEGATIVE (NEG <=200)
[2022-09-29 09:06] LABS: BENZODIAZEPINE, URINE POSITIVE (NEG <=150); CANNABINOID, URINE NEGATIVE (NEG <=50); COCAINE, URINE NEGATIVE (NEG <=150); METHAMPHETAMINES SCREEN,URINE NEGATIVE (NEG <=500); URINE AMPHETAMINE NEGATIVE (NEG <=500)
[2022-09-29 09:07] LABS: OPIATE, URINE POSITIVE (NEG <=100); PHENCYCLIDINE SCREEN,URINE NEGATIVE (NEG <=25); URINE OXYCODONE SCREEN NEGATIVE (NEG <=100); URINE PROPOXYPHENE SCREEN NEGATIVE (NEG <=300)
[2022-09-29 09:08] LABS: UR TRICYCLIC ANTIDEPRESSANTS POSITIVE (NEG <=300)
[2022-09-29] MEDS ORDERED: cefTRIAXone 1 GM in LIDOCAINE 1%, 20 ML MDV 2.1 ML IM ONE (09:15)
[2022-09-29 10:18] VITALS: BP_SYST 129
--- NOTE | 2022-09-29 10:35 | NUR ---
ACI PROVIDED. PT AGREES W/ D/C PLAN. 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 KRISTI STATES WILL ARRIVE IN 20 MIN. IV REMOVED INTACT.
--- NOTE | 2022-09-29 11:00 | NUR ---
CONTINUED CARE ENDORSED TO RECIEVING NURSE. PT IN [facility] AWAITING ARRIVAL OF FOR TRANSPORT.
== END 2022-09-29 10:35 | disposition home or self-care (01) ==
LOC: SED 00:37
DX: G89.29 Other chronic pain (principal); T50.995A Adverse effect of other drugs, medicaments and biological substances, initial encounter; F41.9 Anxiety disorder, unspecified; M79.7 Fibromyalgia; Z88.5 Allergy status to narcotic agent; Z88.6 Allergy status to analgesic agent; Z88.8 Allergy status to other drugs, medicaments and biological substances; Z79.899 Other long term (current) drug therapy
CPT/HCPCS: 99284; 96360; 71045; 96361; 80307; 80053; 85025; 86140; 36415; 83605; 81000; G0482; J0696; J2001; J7030

== ENCOUNTER 2022-10-18 01:20 | Emergency (ER) | payer BC ==
[~2022-10-18] VITALS: Ht 170.2 cm; Wt 129.3 kg
[2022-10-18 01:35] VITALS: BP_SYST 136
--- NOTE | 2022-10-18 01:35 | NUR ---
Patient triaged and placed back to the waiting room. Vital signs updated, denied any acute distress at this time. Instructed to notify ED staff for any changes in condition or worsening of symptoms. Patient verbalized understanding.
--- NOTE | 2022-10-18 02:15 | NUR ---
Dr. Cisse in triage room examining the patient.
[2022-10-18 02:49] LABS: EOSINOPHILS # (AUTO) 0.4 K/uL (0.0-0.4); EOSINOPHILS % (AUTO) 3.9 % (0.0-4.0); HEMOGLOBIN 11.8 g/dL (12.0-16.0); LYMPHOCYTES # (AUTO) 2.3 K/uL (1.0-5.5); LYMPHOCYTES % (AUTO) 24.7 % (20.5-51.5); MEAN CORPUSCULAR HEMOGLOBIN 21 pg (27-31); MEAN CORPUSCULAR HGB CONC 30 % (32-36); MEAN CORPUSCULAR VOLUME 68 fL (79.0-98.0); MONOCYTES # (AUTO) 0.7 K/uL (0.0-1.0); MONOCYTES % (AUTO) 7.4 % (1.7-9.3); NEUTROPHILS # (AUTO) 6.1 K/uL (1.8-7.7); PLATELET COUNT (AUTO) 362 K/uL (130-430); RED CELL DISTRIBUTION WIDTH 19.6 % (9.0-15.0); WHITE BLOOD COUNT (AUTO) 9.5 K/uL (4.8-10.8)
[2022-10-18 03:15] LABS: CALCIUM 8.7 mg/dL (8.4-11.0); CREATININE 0.9 mg/dL (0.55-1.30)
[2022-10-18 03:19] LABS: ALBUMIN 3.6 g/dL (3.4-4.8); TOTAL BILIRUBIN 0.4 mg/dL (0.0-1.0)
--- NOTE | 2022-10-18 03:31 | NUR ---
Patient placed in ER BED 3 for evaluation. Bed in lowest position with siderails up. Report given to ELVER CROOK for continuity of care. Instructed to notify ED staff for any changes in condition or worsening of symptoms. Patient verbalized understanding.
[2022-10-18 03:33] LABS: RED BLOOD CELL COUNT(AUTO) 5.53 MIL/uL (4.2-6.2)
[2022-10-18 03:34] LABS: HEMATOCRIT 36.5 % (36-48)
[2022-10-18] MEDS ORDERED: MORPHINE 4 MG INJ. 4 MG/ML VIAL IVP ONE (03:45)
--- NOTE | 2022-10-18 04:37 | NUR ---
Pt C/O lower abdominal pain Pt resting comfortably in bed NAD AOX4 VSS Able to make needs known IV inserted to left forearm Pt medicated Will continue to monitor
[2022-10-18] MEDS ORDERED: LORazepam 2 MG/ML VIAL IVP ONE (04:45)
--- NOTE | 2022-10-18 06:34 | NUR ---
Patient given written and verbal discharge instructions and verbalizes understanding. ER MD discussed with patient the results and treatment provided. Patient in stable condition. ID arm band removed. IV catheter removed intact and dressing applied, no active bleeding. Patient educated on pain management and to follow up with PMD. Opportunity for questions provided and answered. Medication side effect fact sheet provided.
[2022-10-18 06:41] VITALS: BP_SYST 128
== END 2022-10-18 06:34 | disposition home or self-care (01) ==
LOC: SED 01:20
DX: R10.30 Lower abdominal pain, unspecified (principal); R11.2 Nausea with vomiting, unspecified; Z88.5 Allergy status to narcotic agent; Z88.6 Allergy status to analgesic agent; Z88.8 Allergy status to other drugs, medicaments and biological substances; Z79.899 Other long term (current) drug therapy
CPT/HCPCS: 99285; 74176; 96374; 96375; 80053; 83690; 85025; 36415; 76376; J2060; J2270

== ENCOUNTER 2022-12-05 02:09 | Emergency (ER) | payer BC ==
[~2022-12-05] VITALS: Ht 170.2 cm; Wt 130.6 kg
[2022-12-05 02:13] VITALS: BP_SYST 125; PULSE 111; RESP 18; TEMP 98; O2SAT 98
--- NOTE | 2022-12-05 02:13 | NUR ---
Triaged and placed patient in ER bed 6 for evaluation. Report given to BIA CROOK for continuity of care. VSS, no acute respiratory distress noted at this time. Instructed to notify ED staff for any changes in condition or worsening of symptoms. Patient verbalized understanding.
--- NOTE | 2022-12-05 02:13 | NUR ---
at the bedside
--- NOTE | 2022-12-05 02:50 | NUR ---
Dr. Flores is at bedside examining the patient.
[2022-12-05] MEDS ORDERED: MORPHINE 4 MG INJ. 4 MG/ML VIAL IM ONE (03:00)
[2022-12-05] MEDS ORDERED: LORazepam 1 MG TABLET PO ONE (03:00)
[2022-12-05 03:09] VITALS: BP_SYST 125; PULSE 111; RESP 18; TEMP 98; O2SAT 98
--- NOTE | 2022-12-05 03:10 | NUR ---
Patient given written and verbal discharge instructions and verbalizes understanding. ER MD discussed with patient the results and treatment provided. Patient in stable condition. ID arm band removed. NO Rx given. Patient educated on pain management and to follow up with PMD. Pain Scale 3/10. Opportunity for questions provided and answered. Medication side effect fact sheet provided.
== END 2022-12-05 03:09 | disposition home or self-care (01) ==
LOC: SED 02:09
DX: M79.661 Pain in right lower leg (principal); M79.662 Pain in left lower leg; G89.29 Other chronic pain; Z79.891 Long term (current) use of opiate analgesic; Z88.5 Allergy status to narcotic agent; Z88.6 Allergy status to analgesic agent; Z88.8 Allergy status to other drugs, medicaments and biological substances; Z91.048 Other nonmedicinal substance allergy status; Z79.899 Other long term (current) drug therapy
CPT/HCPCS: 99283; 96372; J2270

== ENCOUNTER 2023-01-11 16:03 | Emergency (ER) | payer BC ==
[~2023-01-11] VITALS: Ht 170.2 cm; Wt 127.0 kg
[2023-01-11 16:10] VITALS: BP_SYST 146; PULSE 67; RESP 20; TEMP 98.3; O2SAT 97
[2023-01-11 17:09] LABS: BASOPHILS # (AUTO) 0.1 K/uL (0.0-0.2); BASOPHILS % (AUTO) 0.4 % (0.0-2.0); EOSINOPHILS # (AUTO) 0.1 K/uL (0.0-0.4); EOSINOPHILS % (AUTO) 0.8 % (0.0-4.0); HEMATOCRIT 38.2 % (36-48); HEMOGLOBIN 11.3 g/dL (12.0-16.0); LYMPHOCYTES # (AUTO) 2.1 K/uL (1.0-5.5); MEAN CORPUSCULAR HEMOGLOBIN 20 pg (27-31); MEAN CORPUSCULAR HGB CONC 30 % (32-36); MEAN CORPUSCULAR VOLUME 69 fL (79.0-98.0); MONOCYTES # (AUTO) 0.4 K/uL (0.0-1.0); MONOCYTES % (AUTO) 3.2 % (1.7-9.3); NEUTROPHILS # (AUTO) 9.6 K/uL (1.8-7.7); NEUTROPHILS % (AUTO) 78.6 % (40.0-70.0); RED BLOOD CELL COUNT(AUTO) 5.58 MIL/uL (4.2-6.2); RED CELL DISTRIBUTION WIDTH 19.5 % (9.0-15.0); WHITE BLOOD COUNT (AUTO) 12.3 K/uL (4.8-10.8)
[2023-01-11] MEDS ORDERED: ONDANSETRON HCL 4 MG/2 ML VIAL IVP ONE (17:15)
[2023-01-11 17:16] LABS: INR 1.1 (0.8-1.2); PROTHROMBIN TIME 11.1 SECS (9.5-12.5)
[2023-01-11 17:19] LABS: ALBUMIN 3.7 g/dL (3.4-4.8); CALCIUM 9.2 mg/dL (8.4-11.0); CREATININE 0.71 mg/dL (0.55-1.30); POTASSIUM 3.5 mmol/L (3.5-5.1); TOTAL BILIRUBIN 0.5 mg/dL (0.0-1.0); TOTAL PROTEIN, SERUM 7.1 g/dL (6.4-8.3)
[2023-01-11 17:22] LABS: PLATELET COUNT (AUTO) 317 K/uL (130-430)
[2023-01-11 17:24] LABS: ANISOCYTOSIS 1+; HYPOCHROMASIA 1+
[2023-01-11] MEDS ORDERED: iohexoL 350 mgI/mL, 100 ML INFUS..BTL IV ONE (17:30)
[2023-01-11] MEDS ORDERED: MORPHINE 4 MG INJ. 4 MG/ML VIAL IVP ONE (18:45)
[2023-01-11] MEDS ORDERED: ONDA8TAB60 PO (18:51)
[2023-01-11 18:52] VITALS: BP_SYST 141; PULSE 68; RESP 15; TEMP 98.2; O2SAT 95
== END 2023-01-11 19:14 | disposition home or self-care (01) ==
LOC: SED 16:03
DX: R10.84 Generalized abdominal pain (principal); R11.2 Nausea with vomiting, unspecified; R06.02 Shortness of breath; Z88.5 Allergy status to narcotic agent; Z88.6 Allergy status to analgesic agent; Z88.8 Allergy status to other drugs, medicaments and biological substances; Z91.048 Other nonmedicinal substance allergy status; Z79.899 Other long term (current) drug therapy
CPT/HCPCS: 99285; 71275; 96374; 96375; 80053; 82550; 82962; 83880; 85025; 85610; 85730; 36415; 93005; 74160; 76376; Q9967; J2405; J2270

== ENCOUNTER 2023-05-16 01:44 | Emergency (ER) | payer BC ==
[~2023-05-16] VITALS: Ht 170.2 cm; Wt 136.1 kg
[~2023-05-16 01:44] MED LIST changes: +ONDA8TAB60 PO
[2023-05-16 01:55] VITALS: BP_SYST 162; PULSE 76; RESP 20; TEMP 97.6; O2SAT 96
[2023-05-16] MEDS ORDERED: MORPHINE 4 MG INJ. 4 MG/ML VIAL IM ONE ×2 (02:15→03:15)
[2023-05-16] MEDS ORDERED: ONDANSETRON 4 MG ODT TAB ONE (02:28)
[2023-05-16] MEDS ORDERED: ONDANSETRON 4 MG ODT TAB PO ONE (02:30)
[2023-05-16 03:41] VITALS: BP_SYST 157; PULSE 84; RESP 16; TEMP 97.6; O2SAT 95
== END 2023-05-16 03:41 | disposition home or self-care (01) ==
LOC: SED 01:44
DX: M79.7 Fibromyalgia (principal); F11.988 Opioid use, unspecified with other opioid-induced disorder; Z88.5 Allergy status to narcotic agent; Z88.8 Allergy status to other drugs, medicaments and biological substances; Z79.899 Other long term (current) drug therapy
CPT/HCPCS: 99284; 71045; 82962; 93005; 96372; Q0162; J2270